=== PATIENT | female | born 1980 | race Caucasian/White ===

== ENCOUNTER 2017-04-23 00:37 | Emergency (ER) | payer OTHER ==
[~2017-04-23] VITALS: Ht 172.7 cm; Wt 60.0 kg
[2017-04-23 00:46] VITALS: Ht 172.7 cm; Wt 60.0 kg
[2017-04-23] MEDS ORDERED: ONDANSETRON 4 MG INJ IV STA (00:47)
[2017-04-23] MEDS ORDERED: SOD CHLORIDE 0.9% 1,000 ML IV ONE ×2 (01:00)
--- NOTE | 2017-04-23 02:20 | RADRPT ---
PROCEDURE: CT Brain without contrast. CLINICAL INDICATION: Trauma. Alcohol use. Uncooperative patient. TECHNIQUE: Axial images from the skull base through the vertex without IV contrast. Multiplanar r eformatted images were made. Images were reviewed on a PACS workstation. The CTDIvol is 41.12 mGy and the DLP is 720.23 mGycm. One or more of the following dose reduction techniques were used: auto mated exposure control, adjustment of the mA and/or kV according to patient size, or use of iterativ e reconstruction technique. COMPARISON: None. FINDINGS: The ventricles and cisterns are normal for age. There is no evidence for territorial infarction or intracranial hemorrhage. No mass or midline shift is seen. No extra-axial fluid collection is seen . The visualized paranasal sinuses and mastoids are clear. The study is somewhat limited by patien t motion. IMPRESSION: No definite acute intracranial abnormality. RPTAT: [facility] Physician Britany Date Time Electronically viewed and signed by Physician Britany on 04/23/2017 02:19 ELVIA/
--- NOTE | 2017-04-23 02:34 | RADRPT ---
PROCEDURE: CT facial bones CLINICAL INDICATION: Facial trauma with nosebleed. Alcohol use. TECHNIQUE: Thin section spiral CT images through the facial bones without contrast. Multiplanar re constructions. The CTDIvol is 29.48 mGy and the DLP is 525.91 mGy-cm. One or more of the following dose reduction techniques were used: automated exposure control, adjustment of the mA and/or kV acc ording to patient size, or use of iterative reconstruction technique. COMPARISON: None. FINDINGS: No fracture or dislocation is seen. The globes appear symmetric and intact. No definite soft tissu e abnormality. There is mild mucoperiosteal thickening of the ethmoids. Slight leftward deviation o f the nasal septum. Mild mucoperiosteal thickening of the primary ostium of the left ostiomeatal un it. IMPRESSION: No definite acute traumatic abnormality. RPTAT: [facility] Physician Britany Date Time Electronically viewed and signed by La Nena Segura Physician on 04/23/2017 02:34 LE/
--- NOTE | 2017-04-23 03:14 | ERD ---
ER Documentation Chief Complaint Date/Time DATE: 04/23/17 TIME: 03:11 Chief Complaint BIBA D/T ACUTE ETOH INTOXICATION HPI This 36-year-old female is brought in along with friends for alcohol intoxication. She also fell outside of the bar and hit her head and her face. She had a bloody nose. She is now present with him in the ER and and did vomit upon history taking. She does appear intoxicated and cannot provide an adequate history currently. ROS History limited and taken from friends. Patient was feeling fine earlier in the evening. PMhx/Soc Medical and Surgical Hx: pt denies Medical Hx History of Surgery: Yes (BREAST AUGMENTATION) Hx Neurological Disorder: Yes (MIGRAINE) Hx Respiratory Disorders: No Hx Cardiac Disorders: Yes (HTN) Hx Psychiatric Problems: No Hx Miscellaneous Medical Probl: No Hx Alcohol Use: Yes Hx Substance Use: No Hx Tobacco Use: No Smoking Status: Unknown if ever smoked Physical Exam Vitals Vital Signs Date Time Temp Pulse Resp B/P Pulse Ox O2 Delivery O2 Flow Rate FiO2 04/23/17 00:46 98.1 78 16 116/79 98 Physical Exam Const: [] No distress Head: Atraumatic Eyes: Normal Conjunctiva, EOMI, PRL ENT: Normal External Ears, Nose and Mouth. Bleeding from the nares without nasal septal hematoma Neck: Full range of motion..~ No meningismus. Abd: Soft, non tender, non distended. Normal bowel sounds Skin: No petechiae or rashes Ext: No cyanosis, or edema Neur: Awake and alert and oriented 3, slurred speech, no focal deficits Psych: Normal Mood and Affect Results 24 hrs Current Medications Medications (Trade) Dose Ordered Sig/Parish Route PRN Reason Start Time Stop Time Status Last Admin Dose Admin Sodium Chloride (NS) 1,000 ml @ 1,000 mls/hr Q1H ONCE IV 04/23/17 01:00 04/23/17 01:59 DC 04/23/17 01:07 Ondansetron HCl 4 mg 4 mg ONCE STAT IV 04/23/17 00:47 04/23/17 00:49 DC 04/23/17 01:07 Sodium Chloride (NS) 1,000 ml @ 1,000 mls/hr Q1H ONCE IV 04/23/17 01:00 04/23/17 01:59 DC 04/23/17 01:08 Procedures/MDM Alcohol intoxication with fall and head injury. Did vomit one time in the emergency room. Was given IV liter of normal saline as well as IV Zofran. She did sober up over her monitoring for greater than 2 hours and currently her friend feels comfortable taking her home. Patient also agrees to go. Repeat exam was performed that she is clinically sober and she still has no neurological deficits. Departure Diagnosis: Primary Impression: Alcoholic intoxication Additional Impressions: Head injury Vomiting Condition: Stable ROHINI MARTIN DO Apr 23, 2017 03:14
[2017-04-23] MEDS ORDERED: ONDA4TAB11 PO (03:26)
[2017-04-23 03:29] VITALS: PULSE 65; RESP 16
== END 2017-04-23 03:31 | disposition home or self-care (01) ==
LOC: E/R 00:37
DX: F10.129 Alcohol abuse with intoxication, unspecified (principal); S09.90XA Unspecified injury of head, initial encounter; R11.10 Vomiting, unspecified; I10 Essential (primary) hypertension; R40.2122 Coma scale, eyes open, to pain, at arrival to emergency department; R40.2212 Coma scale, best verbal response, none, at arrival to emergency department; R40.2352 Coma scale, best motor response, localizes pain, at arrival to emergency department; W18.39XA Other fall on same level, initial encounter; Y92.89 Other specified places as the place of occurrence of the external cause
CPT/HCPCS: 70450; 70486; 96374; 99285; J2405; J7030